=== PATIENT | female | born 1955 | race Two or more races ===

== ENCOUNTER 2024-08-13 18:55 | Emergency (ER) | payer OTHER ==
[~2024-08-13] VITALS: Ht 160 cm; Wt 80.7 kg
[2024-08-13] MEDS ORDERED: DEXAMETHASONE SODIUM PHOSPHATE 4 MG/ML VIAL IM STA (20:34)
[2024-08-13] MEDS ORDERED: DEXAMETHASONE SODIUM PHOSPHATE 4 MG/ML VIAL ONE (20:42)
[2024-08-13 21:29] LABS: HEMATOCRIT 36.3 % (36.0-45.00); HEMOGLOBIN 12.4 g/dL (12.0-15.00); MEAN CELL VOLUME 93.4 fL (80.00-100.00); MEAN CORPUSCULAR HEMOGLOBIN 31.8 pg (27.00-32.0); PLATELET COUNT 171 K/uL (150-450); RED BLOOD COUNT 3.89 M/uL (4.00-6.00); RED CELL DISTRIBUTION WIDTH 12.6 % (11.5-14.5)
== END 2024-08-13 22:06 | disposition home or self-care (01) ==
LOC: ER 18:57
DX: J02.9 Acute pharyngitis, unspecified (principal); Z20.822 Contact with and (suspected) exposure to COVID-19
CPT/HCPCS: 36415; 96365; 99282; J1100